=== PATIENT | female | born 1935 | race Caucasian/White ===

== ENCOUNTER 2021-11-15 10:00 | Outpatient (RCR) | payer MEDICARE, BC, SELFPAY | END 2021-12-01 16:45 | disposition home or self-care (01) | LOC: PT.CARL 10:00 | PROVIDERS: PCP Family Medicine; Visit Provider Family Medicine | DX: M50.30 Other cervical disc degeneration, unspecified cervical region (principal) | CPT/HCPCS: 97010; 97014; 97035; 97110; 97140; 97163; G0283 ==

== ENCOUNTER 2022-05-07 11:28 | Emergency (ER) | payer MEDICARE, BC, SELFPAY ==
[2022-05-07 11:38] VITALS: BP 154/81; PULSE 74; RESP 17; TEMP 36.6; O2SAT 95; BMI 28.3
--- NOTE | 2022-05-07 11:41 | XR_ITS ---
PROCEDURE INFORMATION: Exam: XR Cervical Spine Exam date and time: 05/07/2022 11:45 AM Age: 86 years old Clinical indication: Neck pain; Additional info: Neck pain- no injury but can not turn neck or bend without pain TECHNIQUE: Imaging protocol: Radiologic exam of the cervical spine. Views: 2 or 3 views. COMPARISON: No relevant prior studies available. FINDINGS: Bones/joints: Multilevel degenerative disc and joint space changes, most pronounced at C6/7 and C7/T1 with marginal osteophytosis. Straightened cervical spine. Vertebral body heights grossly preserved. Soft tissues: Soft tissue silhouette unremarkable. IMPRESSION: Degenerative changes. Spasm.
--- NOTE | 2022-05-07 11:43 | HMH.EDGENADL ---
Discharge Plan Disposition Patient Disposition: Home, Self-Care Condition: Good Prescriptions Prescriptions: New baclofen 5 mg tablet 5 mg PO Q8H PRN (Reason: neck pain) Qty: 20 0RF Referrals Follow up/Referrals: Mimi Madera [Primary Care Provider] - See instructions Activity Restrictions/Add. Instructions Additional Instructions/Restrictions: You may take [id number] Tylenol for your pain. A prescription for a muscle relaxer named baclofen is waiting for you at the local [facility] pharmacy. Please follow-up with your primary care doctor if you do not feel better in the next 2 to 3 days. Return to the emergency department immediately if you feel worse in any way. Clinical Impressions Clinical Impression: Strain of neck muscle Instructions Patient Instructions: DI for Neck Pain Discharge ED Provider: Ismael Fung Adult HPI General Chief complaint: Neck Pain/Injury Stated complaint: neck pain, no accident Time Seen by Provider: 05/07/22 11:36 Mode of Arrival: Ambulatory Source of Information: Patient and Relative Limitations: Physical Limitations Description of Symptoms (Recalled from ER Triage Doc. by RN): Pt c/o neck pain onset I couldn't straighten it out two days prior, atraumatic, PMH cervical osteoarthritis, NAD History of Present Illness HPI narrative: The patient presents to the emergency department complaining of a 2-day history of bilateral posterior neck pain without history of trauma. She has a history of arthritis and has had similar symptoms in the past but not so severe as today. She denies any neurologic deficits. She also denies fevers. Related Data Previous Rx's Medication Instructions Recorded baclofen 5 mg tablet 5 mg PO Q8H PRN neck pain #20 tabs 05/07/22 Allergies Allergy/AdvReac Type Severity Reaction Status Date / Time No Known Allergies Allergy Unverified 03/20/17 15:02 [facility] Disclaimer: The information contained in this section may have been updated after the patient was seen, as this information can be updated by other users. Social History Smoking Status: Never smoker alcohol intake: never current occupational status: retired Travel in the last 8 weeks: None ROS Obtained: Yes All systems reviewed & no additional complaints except as documented Physical Exam General General appearance: alert Head Head exam: atraumatic Eye Eye exam: Present normal appearance ENT ENT exam: Present normal exam Neck Neck exam: Present normal inspection, full ROM (There is increased pain when turning the head side to side.), trachea midline and tenderness (There is mild paraspinal muscle tenderness. There is no midline tenderness.); Absent meningismus or lymphadenopathy Chest Chest inspection: Present normal inspection and symmetric chest wall rise; Absent tenderness Respiratory Respiratory exam: Present normal lung sounds bilaterally; Absent respiratory distress or accessory muscle use Cardiovascular Cardiovascular exam: Present regular rate, normal rhythm and normal heart sounds Abdominal Exam Abdominal exam: Present soft and normal bowel sounds; Absent distention, tenderness, heel tap sign, Bethea's sign, Rovsing's sign, tenderness at McBurney's Point or mass Extremities Exam Extremities exam: Present normal inspection and full ROM Back Exam Back exam: Present normal inspection; Absent CVA tenderness (R) or CVA tenderness (L) Neurological Exam Neurological exam: Present alert and oriented X3 Psychiatric Psychiatric exam: Present normal affect and normal mood Skin Skin exam: Present warm, dry, intact and normal color Medical Decision Making [place] Inquiry Pt receiving controlled substance: No Vital Signs: 05/07/22 11:38 Temperature 97.8 F Temperature Source Oral Pulse Rate [Left Radial] 74 Respiratory Rate 17 Blood Pressure [Right Arm] 154/81 H Blood Pressure Mean [Right Arm] 105 Blood Pressure Source [Right Arm] Automati
[2022-05-07 12:00] VITALS: BP 144/78; PULSE 72; O2SAT 97
[2022-05-07 12:29] VITALS: BP 131/70; PULSE 62; O2SAT 96
[2022-05-07 12:33] VITALS: BP 131/70; PULSE 64; RESP 16; TEMP 36.7; O2SAT 96
== END 2022-05-07 12:35 | disposition home or self-care (01) ==
PROVIDERS: Emergency Provider Emergency Medicine; PCP Family Medicine
DX: S16.1XXA Strain of muscle, fascia and tendon at neck level, initial encounter (principal); X58.XXXA Exposure to other specified factors, initial encounter
CPT/HCPCS: 72040; 96372; 99283; 99284

== ENCOUNTER 2023-06-25 10:19 | Observation (INO) | payer MEDICARE, BC, SELFPAY ==
[2023-06-25] VITALS (12 sets, daily range): BP systolic 126–201; BP diastolic 69–115; PULSE 61–88; RESP 16–18; TEMP 36.6–37.2; O2SAT 91–99; BMI 21.9; BMI 22.3
--- NOTE | 2023-06-25 11:07 | CT_ITS ---
FINAL REPORT TECHNIQUE: Axial imaging of the head was obtained without contrast. This study was performed with techniques to keep radiation doses as low as reasonably achievable, (ALARA). Individualized dose reduction techniques using automated exposure control or adjustment of mA and/or kV according to the patient''s size were employed. CLINICAL HISTORY: AMS, general weakness FINDINGS: The ventricles are normal in size. There is no evidence of hemorrhage. No masses are identified. No extra-axial fluid is seen. The sinuses are normal. There is no acute osseous abnormality. IMPRESSION: No acute intracranial abnormality. Reviewed, Interpreted and Dictated by Brii Drew MD Transcribed by Tameka Rivas Authenticated and [facility]
--- NOTE | 2023-06-25 11:07 | XR_ITS ---
FINAL REPORT TECHNIQUE: Single view chest CLINICAL HISTORY: AMS, general weakness FINDINGS: A single view of the chest was obtained. The heart and mediastinum are within normal limits. The lungs are clear. There is no pneumothorax. Osseous structures are unremarkable. IMPRESSION: No acute cardiopulmonary process. Reviewed, Interpreted and Dictated by Brii Drew MD Transcribed by Tameka Rivas Authenticated and [facility]
--- NOTE | 2023-06-25 11:08 | CT_ITS ---
FINAL REPORT TECHNIQUE: Axial images were obtained from skull base to the thoracic inlet by computed tomography. Coronal and sagittal reconstruction process performed. This study was performed with techniques to keep radiation doses as low as reasonably achievable (ALARA). Individualized dose reduction techniques using automated exposure control or adjustment of mA and/or kV according to the patient''s size were employed. CLINICAL HISTORY: worsened neck pain, chronic, arthritis FINDINGS: There is no acute fracture or subluxation. Cervical medullary junction is intact. There is multilevel degenerative disc disease most pronounced at C6-7. There is a small right cervical rib. The facets are normally aligned. The soft tissues are unremarkable. Limited images of the lung apices are unremarkable. IMPRESSION: Degenerative changes without acute fracture. Reviewed, Interpreted and Dictated by Brii Drew MD Transcribed by Tameka Rivas Authenticated and [facility]
[2023-06-25 11:17] LABS: Chloride 103 mmol/L (98-107); Sodium 132 mmol/L (136-145)
[2023-06-25 11:20] LABS: Alanine Aminotransferase 24 U/L (12-78); Albumin Level 3.7 g/dl (3.5-5.0); Albumin/Globulin Ratio 1.1 (1.1-1.8); Alkaline Phosphatase 95 U/L (38-126); Aspartate Amino Transferase 28 U/L (14-36); Bilirubin,Total 1.6 mg/dl (0.2-1.3); Blood Urea Nitrogen 17 mg/dl (7-17); Calcium 9.6 mg/dl (8.4-10.2); Carbon Dioxide 20 mmol/L (22.0-30.0); Creatinine Clearance Estimated 38 mL/min (50-200); Estimated Glomerular Filt Rate 68 ml/min (>60); GFR (African American) 82 ML/MIN (>60); Globulin 3.4 g/dL (1.3-3.2); Glucose 145 mg/dl (74-100); Total Protein,Serum 7.1 g/dl (6.3-8.2)
[2023-06-25 11:21] LABS: Magnesium 1.8 mg/dl (1.6-2.3)
[2023-06-25 11:33] LABS: Basophils # 0.1 K/mm3 (0-0.2); Basophils % 0.4 % (0.1-2.0); Eosinophils % 0.1 % (0.1-12.0); Hematocrit 39.3 % (37.0-47.0); Hemoglobin 13.2 g/dL (12.2-16.2); Lymphocytes # 2.3 K/mm3 (0.7-4.5); Lymphocytes % 11.7 % (10-50); Mean Corpuscular HGB Conc 33.5 g/dL (31.8-35.4); Mean Corpuscular Hemoglobin 29.3 pg (27.0-31.2); Mean Corpuscular Volume 87.4 fl (81-99); Mean Platelet Volume 8.5 fl (7.4-10.4); Monocytes # 1.8 K/mm3 (0.1-1.0); Monocytes % 9.3 % (1.7-9.3); Neutrophils # 15.1 K/mm3 (1.8-7.8); Neutrophils % 78.5 % (37.0-80.0); Platelet Count 471 K/mm3 (142-424); Red Cell Distribution Width 14.8 % (11.5-17.5); White Blood Count 19.2 K/mm3 (4.8-10.8)
--- NOTE | 2023-06-25 11:33 | ECG_ITS ---
APPROVED REPORT Exam: Resting ECG HR:69 bpm ECG Measurements Heart Rate 69 AXES MT 144 P 64 QRSd 88 QRS -4 QT 414 T 73 QTc 433 Conclusion SINUS RHYTHM VOLTAGE CRITERIA FOR LVH [MEETS CRITERIA IN ONE OF: R(aVL), S(V1), R(V5), R(V5/V6)+S(V1)] NONSPECIFIC ST & T-WAVE ABNORMALITY Electronically signed by : LLOYD GUZMAN, 06/25/2023 15:54:20
[2023-06-25 11:34] LABS: MANUAL DIFFERENTIAL MANUAL DIFFERENTIAL (MANUAL DIFF)
[2023-06-25 11:38] LABS: T4 (Thyroxine) 9.3 ug/dl (5.53-11.0); Troponin I < 0.01 ng/ml (0.00-0.034)
[2023-06-25 11:40] LABS: Coronavirus 19, PCR Not Detected (NotDetected); Influenza A, PCR Not Detected (NotDetected); Influenza B, PCR Not Detected (NotDetected)
[2023-06-25 11:45] LABS: NT Pro Brain Natriuretic Pep. 251 pg/mL (0-450)
[2023-06-25 11:52] LABS: Lymphocytes % 21 % (10-50); Monocytes % 10 % (2-9); Neutrophils % 69 % (42-76); Platelet Estimate Slight Increase; RBC Morphology Normal; Thyroid Stimulating Hormone 1.89 uIU/mL (0.465-4.68); Total Cells Counted 100
--- NOTE | 2023-06-25 11:54 | ED_ITS ---
Discharge Plan Disposition Patient Disposition: Admitted Clinical Impressions Clinical Impression: Acute UTI, General weakness, Altered mental status Discharge ED Provider: Latia Parsons General Adult HPI General Chief complaint: Back Pain/Injury Stated complaint: lower back pain Time Seen by Provider: 06/25/23 10:58 Mode of Arrival: EMS Source of Information: Patient, Relative and EMS Limitations: No Limitations Description of Symptoms (Recalled from ER Triage Doc. by RN): Upon arrival pt c/o lower back pain that has been ongoing x1 year. pt denies urinary/abd symptoms or radiation. pt states the pain is dull but 10/10. pt denies injury. pt has a hx of dementia per EMS but is A&O x4. pts son, David, on arrival states she has been having lower back pain and bilateral ankle/foot pain x3d. David states there has been no injury. Per the son the pt has refused to take any of her medications for the last week. History of Present Illness HPI narrative: This patient is an 87-year-old female with history of dementia, chronic neck pain, hypertension, and hypothyroidism presenting with concern for generalized weakness. According to the patient's family, she has complained of chronic neck pain for quite some time now, months to years, and has had multiple imaging studies done and has been told that she has arthritis. They note that nothing is changed as far as this goes, but today the patient was more confused than usual and generally weak. They note that this actually started probably yesterday with more confusion and general weakness, but the patient was ambulatory yesterday with assistance. She typically does not require help. They note that she has been complaining of pain in the bottom of her feet. Today, they could not get her up out of bed without significant assistance. They tried to bring her here by POV to be evaluated, but they could not get her into the car. This is unusual for her. Patient states overall she just feels very weak. She denies any numbness, tingling, saddle anesthesia, increasing pain, incontinence, retention, or other concerns. No fevers, cough, congestion, abdominal pain, urinary symptoms, or other issues noted. Of note, patient has not taken her medications in 3 days. Related Data Home Medications Medication Instructions Recorded Confirmed acetaminophen 650 mg tablet 650 mg PO Q4-6H Pain 06/25/23 06/25/23 amlodipine 5 mg tablet 5 mg PO DAILY 06/25/23 06/25/23 aspirin 81 mg tablet 81 mg PO DAILY HEART HEALTH 06/25/23 06/25/23 budesonide-formoterol HFA 80 1 inh inhalation BID PRN Breathing 06/25/23 06/25/23 mcg-4.5 mcg/actuation aerosol Problems inhaler (Symbicort) buspirone 7.5 mg tablet 7.5 mg PO BID 06/25/23 06/25/23 donepezil 10 mg tablet 10 mg PO HS 06/25/23 06/25/23 dorzolamide 22.3 mg-timolol 6.8 1 drp ophthalmic (eye) BID 06/25/23 06/25/23 mg/mL eye drops fluoxetine 40 mg capsule 40 mg PO DAILY Mood 06/25/23 06/25/23 latanoprost 0.005 % eye drops 1 drp ophthalmic (eye) HS 06/25/23 06/25/23 levothyroxine 50 mcg tablet 50 mcg PO DAILY Thyroid 06/25/23 06/25/23 losartan 50 mg tablet 50 mg PO HS High Blood Pressure 06/25/23 06/25/23 montelukast 10 mg tablet 10 mg PO PM Allergy Symptoms 06/25/23 06/25/23 pilocarpine HCl 1 % eye drops 1 drp ophthalmic (eye) TID 06/25/23 06/25/23 Allergies Allergy/AdvReac Type Severity Reaction Status Date / Time No Known Allergies Allergy Verified 06/25/23 10:49 [facility] Disclaimer: The information contained in this section may have been updated after the patient was seen, as this information can be updated by other users. Medical History Glaucoma Arthritis HTN (hypertension) Asthma Dementia Hypothyroid Family History (Updated 06/25/23 @ 15:06 by Shania Benavides RN) Other No significant family history Social History (Updated 06/25/23 @ 15:06 by Shania Benavides RN) Smoking Status: Never smoker alcohol intake: never current occupational status: retired Travel in the last 8 weeks: None ROS Obtained: Yes All systems reviewed & no additional complaints except as documented Physical Exam General General appearance: alert and in no apparent distress Head Head exam: atraumatic and normocephalic Eye Eye exam: Present normal appearance, PERRL and EOMI ENT ENT exam: Present normal exam, normal oropharynx, mucous membranes moist and normal external ear exam Neck Neck exam: Present normal inspection, full ROM and trachea midline; Absent tenderness Chest Chest inspection: Present normal inspection and symmetric chest wall rise; Absent tenderness Respiratory Respiratory exam: Present normal lung sounds bilaterally; Absent respiratory distress, wheezes, stridor or accessory muscle use Cardiovascular Cardiovascular exam: Present regular rate and normal rhythm Abdominal Exam Abdominal exam: Present soft; Absent distention, tenderness or guarding Extremities Exam Extremities exam: Present normal inspection, full ROM and normal capillary refill; Absent tenderness or edema Back Exam Back exam: Present normal inspection and full ROM; Absent tenderness Neurological Exam Neurological exam: Present alert, CN II-XII intact and other (Generally weak without focal neurologic deficits. Intact sensation in the bilateral lower extremities.); Absent oriented X3 or motor sensory deficit Expanded Neurological Exam Patient oriented to: Present person; Absent place or time Cranial nerves: Normal: EOM function (II, III, IV, ), facial sensation (V), facial palsy (VII), spinal accessory function (XI) and tongue deviation (XII) Cerebellar function: Normal: finger to nose and heel to [place] Motor strength - LUE: 5/5 Motor strength - RUE: 5/5 Motor strength - LLE: 5/5 Motor strength - RLE: 5/5 Upper motor neuron exam: Normal: radha neglect Sensory exam upper extremity: Normal: light touch Sensory exam lower extremity: Normal: light touch Spinal cord function: Absent saddle anesthesia Coma scale eye opening: Spontaneous Coma scale motor response: Obeys commands Coma scale verbal response: Oriented Coma scale total: 15 Psychiatric Psychiatric exam: Present normal affect and normal mood Skin Skin exam: Present warm and dry Medical Decision Making Medical Records Medical records reviewed: Yes I reviewed the patient's medical records. [place] Inquiry Pt receiving controlled substance: No Vital Signs: 06/25/23 10:32 06/25/23 10:35 06/25/23 11:01 Temperature 98 F Temperature Source Oral Pulse Rate 73 68 Pulse Rate [Left] 71 Respiratory Rate 18 Blood Pressure 195/74 H 185/87 H Blood Pressure [Right Arm] 201/83 H Blood Pressure Mean Blood Pressure Mean [Right Arm] 122 Blood Pressure Source [Right Arm] Automatic Cuff Blood Pressure Position [Right Arm] Sitting 02 Sat by Pulse Oximetry 98 99 97 Oxygen Delivery Method Room Air Room Air 06/25/23 11:30 06/25/23 12:00 06/25/23 12:50 Temperature Temperature Source Pulse Rate 66 74 61 Pulse Rate [Left] Respiratory Rate Blood Pressure 182/81 H 188/92 H 179/115 H Blood Pressure [Right Arm] Blood Pressure Mean Blood Pressure Mean [Right Arm] Blood Pressure Source [Right Arm] Blood Pressure Position [Right Arm] 02 Sat by Pulse Oximetry 98 98 91 L Oxygen Delivery Method Room Air Room Air Room Air 06/25/23 13:05 06/25/23 13:30 06/25/23 14:31 Temperature Temperature Source Pulse Rate 84 88 74 Pulse Rate [Left] Respiratory Rate Blood Pressure 154/94 H 150/73 H 151/75 H Blood Pressure [Right Arm] Blood Pressure Mean 112 Blood Pressure Mean [Right Arm] Blood Pressure Source [Right Arm] Blood Pressure Position [Right Arm] 02 Sat by Pulse Oximetry 97 98 97 Oxygen Delivery Method Room Air Room Air Room Air 06/25/23 15:00 Temperature Temperature Source Pulse Rate Pulse Rate [Left] Respiratory Rate Blood Pressure Blood Pressure [Right Arm] Blood Pressure Mean Blood Pressure Mean [Right Arm] Blood Pressure Source [Right Arm] Blood Pressure Position [Right Arm] 02 Sat by Pulse Oximetry Oxygen Delivery Method Room Air Lab Data Lab results reviewed: Yes I reviewed the patient's lab results. Lab Results 06/25/23 10:32: WBC 19.2 H, RBC 4.50, Hgb 13.2, Hct 39.3, MCV 87.4, MCH 29.3, MCHC 33.5, RDW 14.8, Plt Count 471 H, MPV 8.5, Neut % (Auto) 78.5, Lymph % (Auto) 11.7, [place] % (Auto) 9.3, Eos % (Auto) 0.1, Baso % (Auto) 0.4, Neut # (Auto) 15.1 H, Lymph # (Auto) 2.3, [place] # (Auto) 1.8 H, Eos # (Auto) 0.0, Baso # (Auto) 0.1, Total Counted 100, Neutrophils % (Manual) 69, Lymphocytes % (Manual) 21, Monocytes % (Manual) 10 H, Platelet Estimate Slight increase, RBC Morphology Normal, Sodium 132 L, Potassium 4.0, Chloride 103, Carbon Dioxide 20 L, Anion Gap 13.0, BUN 17, Creatinine 0.80, Estimated Creat Clear 38, Estimated GFR 68, Est GFR ( Amer) 82, Glucose 145 H, Calcium 9.6, Magnesium 1.8, Total Bilirubin 1.6 H, AST 28, ALT 24, Alkaline Phosphatase 95, Troponin I < 0.01, NT-Pro-B Natriuret Pep 251, Total Protein 7.1, Albumin 3.7, Globulin 3.4 H, Albumin/Globulin Ratio 1.1, TSH 1.89, Thyroxine (T4) 9.3 06/25/23 11:36: SARS-CoV-2 (PCR) Not detected, Influenza A Untype (PCR) Not detected, Influenza Type B (PCR) Not detected 06/25/23 12:44: Urine Color Yellow, Urine Appearance Clear, Urine pH 6.0, Ur Specific [place] 1.020, Urine Protein 1+, Urine Glucose (UA) Negative, Urine Ketones 3+, Urine Blood 2+, Urine Nitrate Negative, Urine Bilirubin 1+ A, Urine Urobilinogen 2.0, Ur Leukocyte Esterase Negative, Urine RBC 10-20, Urine WBC 3- 5, Ur Squamous Epith Cells 3-5, Urine Bacteria Trace, Urine Mucus 2+ 06/25/23 10:32 06/25/23 10:32 Orders (Tests/Meds): ED MEDICATIONS Discontinued Medications Generic Name Dose Route Start Last Admin Trade Name Freq PRN Reason Stop Dose Admin Ceftriaxone Sodium 2 gm/ 100 mls @ 200 mls/hr 06/25/23 13:27 06/25/23 14:05 Sodium Chloride IV 06/25/23 13:56 200 mls/hr ONCE ONE Administration ORDERS Category Date Time Status CT cervical spine wo con Stat Cat Scan 06/25/23 11:[address] head/brain wo con Stat Cat Scan 06/25/23 11:07 Completed XR chest portable Stat Exams 06/25/23 11:07 Completed Brain Natriuretic Peptide Stat Lab 06/25/23 10:32 Completed Complete Blood Count Auto Diff AMLAB Lab 06/26/23 06:00 Ordered Complete Blood Count Auto Diff Stat Lab 06/25/23 10:32 Completed Comprehensive Metabolic Panel AMLAB Lab 06/26/23 06:00 Ordered Comprehensive Metabolic Panel Stat Lab 06/25/23 10:32 Completed Magnesium AMLAB Lab 06/26/23 06:00 Ordered Magnesium Stat Lab 06/25/23 10:32 Completed Rapid PCR Covid and Flu A/B Stat Lab 06/25/23 11:36 Completed T4 (Thyroxine) Stat Lab 06/25/23 10:32 Completed Thyroid Stimulating Hormone Stat Lab 06/25/23 10:32 Completed Troponin I Q3H Lab 06/25/23 15:00 Received Troponin I Q3H Lab 06/25/23 17:15 Ordered Troponin I Stat Lab 06/25/23 10:32 Completed Urinalysis and Microscopic Stat Lab 06/25/23 12:44 Completed Blood Culture Stat Micro 06/25/23 13:59 Received ECG Data Tracing #1: I reviewed this ECG and interpreted as documented below: Normal sinus rhythm with a ventricular rate of [address] changes concerning for ischemia. Normal intervals. ECG initial impression date: 06/25/23 ECG initial impression time: 11:36 Medical Decision Narrative: In summary, this patient is a 87-year-old female presenting to the Emergency Department for evaluation of generalized weakness and inability to get up out of bed today. She does continue to complain of chronic neck pain. Differential diagnoses considered include but are not limited to dehydration, hyponatremia, hypokalemia, urinary tract infection, pneumonia, viral syndrome, spinal cord compression. Ruling out the most morbid conditions drove assessment. On exam, the patient is resting comfortably in bed in no acute distress. She is hypertensive, but has not taken her medication in approximately 3 days for her blood pressure. She has no focal neurologic deficits or any numbness, tingling, or other concerns that would suggest spinal cord compression or other acute neurologic abnormality. She is just generally weak overall with no focal deficits, and she is disoriented. Family notes history of dementia, but she is typically not this confused. Workup included lab evaluation including infectious and metabolic workup as well as CT scan of the head, CT C-spine, chest x-ray, and EKG. I independently interpreted CT scans prior to the radiologist read and noted no obvious acute pulmonary consolidation, intracranial hemorrhage/ischemia, or other concerns. Please see their read for final interpretation. Labs were obtained that demonstrated leukocytosis of 19 with concerns for urinary tract infection on urinalysis. Blood cultures and urine culture were sent and are pending. On reassessment, patient remains confused and generally weak with no focal deficits. At this time, feel she likely has UTI causing her encephalopathy and general weakness in the setting of longstanding dementia. Patient was given IV Rocephin. At this time, I feel patient is appropriate for admission for further evaluation and management given that she is too weak to stand and go home. Patient was admitted after interactive discussion with Dr. Kuo. Critical Care Critical Care Time Critical Care Time: No
[2023-06-25 12:49] LABS: Microscopic, Urine URINE MICROSCOPIC (MICROSCOPIC)
[2023-06-25 12:59] LABS: Appearance,Urine CLEAR (Clear); Blood, Urine 2+ (Negative); Color,Urine YELLOW (Yellow); Glucose,Urine (UA) Negative (Negative); Ketones,Urine 3+ (Negative); Leukocyte Esterase,Urine Negative (Negative); Nitrate,Urine Negative (Negative); Protein,Urine 1+ (Negative)
[2023-06-25 13:15] LABS: Bacteria,Urine Trace /lpf; Bilirubin,Urine 1+ (Negative)
[2023-06-25 13:16] LABS: Mucus,Urine 2+ /lpf
--- NOTE | 2023-06-25 14:01 | EXP.HP ---
History of Present Illness *Admission Date: 06/25/23 *Reason for visit:: weakness *History of present illness: Ms. Champagne is an 87-year-old female with history of dementia, hypertension, COPD, mood disorder. She presented to the ER because of complaint of some low back pains been going on for quite a while. States she has been having some pain in her abdomen that is dull but rates it as severe. Family was concerned that she was more confused and weak and not able to participate in her care. She has been complaining of bilateral ankle pain to family but did not complain about this to our team on arrival. Patient has not been taking any of her medications for the past week per family. Their biggest concern that brought her to the ER was increased weakness, confusion, not being ambulatory to assist with her care. Workup in the ER concerning for leukocytosis of 19. No ZARINA, creatinine normal at 0.8. Urine abnormal and concerning for UTI as a source of her confusion and weakness. Initiated on antibiotics with ceftriaxone and medicine was consulted for admission and further management. On evaluation, patient is alert and oriented to self, knows she is in the hospital, thinks she is in [place]. Knows that it is May but does not know the day of the week of the specific date. Knows it is in the 20s. She appears very interactive. Granddaughter (Sid) at bedside states that she is doing better since admission. Patient is on room air and afebrile. [facility] Disclaimer: The information contained in this section may have been updated after the patient was seen, as this information can be updated by other users. Medical History Glaucoma Arthritis HTN (hypertension) Asthma Dementia Hypothyroid Family History Other No significant family history Social History Smoking Status: Never smoker alcohol intake: never current occupational status: retired Travel in the last 8 weeks: None Review of Systems Review of Systems Review of systems (narrative): 14 point review of systems performed, pertinent positives and negatives as per HPI Meds Home Medications and Allergies Home Medications Medication Instructions Recorded Confirmed Type acetaminophen 650 mg tablet 650 mg PO Q4-6H Pain 06/25/23 06/25/23 History amlodipine 5 mg tablet 5 mg PO DAILY 06/25/23 06/25/23 History aspirin 81 mg tablet 81 mg PO DAILY HEART HEALTH 06/25/23 06/25/23 History budesonide-formoterol HFA 80 1 inh inhalation BID PRN Breathing 06/25/23 06/25/23 History mcg-4.5 mcg/actuation aerosol Problems inhaler (Symbicort) buspirone 7.5 mg tablet 7.5 mg PO BID 06/25/23 06/25/23 History donepezil 10 mg tablet 10 mg PO HS 06/25/23 06/25/23 History dorzolamide 22.3 mg-timolol 6.8 1 drp ophthalmic (eye) BID 06/25/23 06/25/23 History mg/mL eye drops fluoxetine 40 mg capsule 40 mg PO DAILY Mood 06/25/23 06/25/23 History latanoprost 0.005 % eye drops 1 drp ophthalmic (eye) HS 06/25/23 06/25/23 History levothyroxine 50 mcg tablet 50 mcg PO DAILY Thyroid 06/25/23 06/25/23 History losartan 50 mg tablet 50 mg PO HS High Blood Pressure 06/25/23 06/25/23 History montelukast 10 mg tablet 10 mg PO PM Allergy Symptoms 06/25/23 06/25/23 History pilocarpine HCl 1 % eye drops 1 drp ophthalmic (eye) TID 06/25/23 06/25/23 History New Prescriptions to Start Prescriptions: Allergies Allergy/AdvReac Type Severity Reaction Status Date / Time No Known Allergies Allergy Verified 06/25/23 10:49 Exam Data for Last 24 hours Vital signs and Labs for Last 24 Hours: Temp Pulse Resp BP Pulse Ox O2 Del Method 98 F 88 18 150/73 H 98 Room Air 06/25/23 10:35 06/25/23 13:30 06/25/23 10:35 06/25/23 13:30 06/25/23 13:30 06/25/23 13:30 Laboratory Results - last 24 hr 06/25/23 10:32: WBC 19.2 H, RBC 4.50, Hgb 13.2, Hct 39.3, MCV 87.4, MCH 29.3, MCHC 33.5, RDW 14.8, Plt Count 471 H, MPV 8.5, Neut % (Auto) 78.5, Lymph % (Auto) 11.7, [place] % (Auto) 9.3, Eos % (Auto) 0.1, Baso % (Auto) 0.4, Neut # (Auto) 15.1 H, Lymph # (Auto) 2.3, [place] # (Auto) 1.8 H, Eos # (Auto) 0.0, Baso # (Auto) 0.1, Total Counted 100, Neutrophils % (Manual) 69, Lymphocytes % (Manual) 21, Monocytes % (Manual) 10 H, Platelet Estimate Slight increase, RBC Morphology Normal, Sodium 132 L, Potassium 4.0, Chloride 103, Carbon Dioxide 20 L, Anion Gap 13.0, BUN 17, Creatinine 0.80, Estimated Creat Clear 38, Estimated GFR 68, Est GFR ( Amer) 82, Glucose 145 H, Calcium 9.6, Magnesium 1.8, Total Bilirubin 1.6 H, AST 28, ALT 24, Alkaline Phosphatase 95, Troponin I < 0.01, NT-Pro-B Natriuret Pep 251, Total Protein 7.1, Albumin 3.7, Globulin 3.4 H, Albumin/Globulin Ratio 1.1, TSH 1.89, Thyroxine (T4) 9.3 06/25/23 11:36: SARS-CoV-2 (PCR) Not detected, Influenza A Untype (PCR) Not detected, Influenza Type B (PCR) Not detected 06/25/23 12:44: Urine Color Yellow, Urine Appearance Clear, Urine pH 6.0, Ur Specific [place] 1.020, Urine Protein 1+, Urine Glucose (UA) Negative, Urine Ketones 3+, Urine Blood 2+, Urine Nitrate Negative, Urine Bilirubin 1+ A, Urine Urobilinogen 2.0, Ur Leukocyte Esterase Negative, Urine RBC 10-20, Urine WBC 3-5, Ur Squamous Epith Cells 3-5, Urine Bacteria Trace, Urine Mucus 2+ I & O for Last 24 hours: Intake & Output 06/22/23 06/23/23 06/24/23 06/25/23 23:59 23:59 23:59 23:59 Weight 58.06 kg Constitutional Constitutional: no acute distress, average body habitus and cooperative *Routine HEENT Exam Head: Present normocephalic Eye: Present EOMI and PERRL ENT: Present mucous membranes moist *Routine Neck Exam Neck: Present supple; Absent lymphadenopathy *Routine Respiratory Exam Respiratory: Present CTA bilaterally; Absent rhonchi, wheezes or crackles *Routine Cardiovascular Exam Cardiovascular: Present RRR *Routine Abdominal Exam Abdominal: Present soft and normoactive bowel sounds; Absent tenderness *Routine Rectal Exam Rectal:: deferred *Routine Genitalia Exam Genitalia:: deferred *Routine Extremities Exam Extremities: Absent cyanosis, clubbing or edema *Routine Skin Exam Skin: Present warm; Absent rash *Routine Neurological Exam Neurological: Present alert and moving all extremities Comments: Oriented to self. Knows she is at the hospital. Thinks she is in [place]. Knows that it is May but does not know the day of the week or the day of the month. Routine Psychiatric Exam Psychiatric: Present normal affect Assessment and Plan *Assessment and plan (1) Altered mental status: Status: Acute Category: Medical Code(s): R41.82 - Altered mental status, unspecified (2) General weakness: Status: Acute Category: Medical Code(s): R53.1 - Weakness (3) Acute UTI: Status: Acute Category: Medical Code(s): N39.0 - Urinary tract infection, site not specified (4) Glaucoma: Status: Acute Category: Medical Code(s): H40.9 - Unspecified glaucoma (5) Hypothyroid: Status: Acute Category: Medical Code(s): E03.9 - Hypothyroidism, unspecified (6) Dementia: Status: Acute Category: Medical Code(s): F03.90 - Unspecified dementia, unspecified severity, without behavioral disturbance, psychotic disturbance, mood disturbance, and anxiety (7) HTN (hypertension): Status: Acute Category: Medical Code(s): I10 - Essential (primary) hypertension Plan 87-year history of dementia, hypertension, hypothyroid, COPD. Presented to the ER with concern for weakness from her baseline. Family concern for some confusion. Workup in the ER concerning for UTI with leukocytosis. Medicine consulted for admission. Discussed case with ER physician, request admission for IV antibiotics, monitoring clinically for improvement in mentation, therapy eval. Medicine agreed to admit. Problems addressed as follows: Altered mental status UTI Generalized weakness Leukocytosis -White cell count of 19, urine is a cath specimen that is abnormal with bacteria. Urine culture pending. Initiate empiric antibiotics with ceftriaxone 1 g IV daily. -Repeat CBC, CMP, magnesium ordered for the morning. -Given history of dementia, continue home donepezil 10mg daily -Monitor for improvement with IV fluids. Repeat cognitive evaluation in the morning. -PT and OT to evaluate patient for possible placement versus home with home health -Continue day night routine to decrease risk for worsening confusion COPD: continue Singulair 10 mg nightly and Symbicort 1 inhalation twice daily Hypertension: Continue home amlodipine 5 mg daily, losartan 50 mg nightly Mood/depression: On continue fluoxetine 40 mg daily, buspirone 7.5 milligrams twice daily Glaucoma/dry eye: Continue dorzolamide/timolol eyedrops twice daily, pilocarpine eyedrops 3 times a day Hypothyroid: TSH 1.9. Continue home levothyroxine 50 mcg daily Full code Lovenox 40 mg subcu daily Regular diet
[2023-06-25] MEDS: CEFTRIAXONE SODIUM 2 GM in 0.9 % SODIUM CHLORIDE 100 ML IV (14:05)
--- NOTE | 2023-06-25 14:14 | PC.NURSE ---
Report called to Shania TOSCNAO
--- NOTE | 2023-06-25 14:24 | HMH.PHAINT1 ---
Pharmacy Intervention Comments: MEDICATION RECONCILIATION COMPLETED ON PATIENT USING EXTERNAL FILL HISTORY FROM PHARMACY. -ASHER JOSE, CARYLD
--- NOTE | 2023-06-25 14:37 | PC.NURSE ---
arrived by w/c from ED
--- NOTE | 2023-06-25 14:40 | PC.NURSE ---
PT GOING UP FOR ADMISSION
[2023-06-25 15:48] LABS: Troponin I < 0.01 ng/ml (0.00-0.034)
[2023-06-25] MEDS: ACETAMINOPHEN 325MG TAB 650 MG PO ×2 (15:50→22:02)
--- NOTE | 2023-06-25 17:16 | PC.NURSE ---
Pt arrived to the floor via wheelchair by ED Stewart and pt's son & granddaughter. She is alert and oriented x3. She remains on RA and tolerating well. She reports feeling less confused and less weak since arriving to the floor. She complained of neck pain rated 7/10, PRN tylenol administered with pt reporting relief on reassessment. Family declined setting up a password stating that someone would be staying with her at all times. Bed is locked and in the lowest position, call light is within reach.
[2023-06-25 17:31] LABS: Troponin I < 0.01 ng/ml (0.00-0.034)
[2023-06-25] MEDS: DONEPEZIL 10MG TAB 10 MG PO (20:54)
[2023-06-25] MEDS: IRBESARTAN 75MG TABLET 75 MG PO (20:54)
[2023-06-25] MEDS: AMLODIPINE 5MG TABLET 5 MG PO (21:57)
[2023-06-25] MEDS: MONTELUKAST SODIUM 10MG TAB 10 MG PO (21:57)
[2023-06-25] MEDS: FLUOXETINE 20MG CAPSULE 40 MG PO (21:58)
[2023-06-25] MEDS: ASPIRIN EC 81MG TABLET 81 MG PO (21:58)
[2023-06-25] MEDS: LEVOTHYROXINE 25MCG (0.025MG) TAB 50 MCG PO (21:59)
[2023-06-26 04:00] VITALS: BP 114/60; PULSE 59; RESP 16; TEMP 36.6; O2SAT 98; BMI 22.1
[2023-06-26 07:47] LABS: Basophils # 0.1 K/mm3 (0-0.2); Basophils % 0.5 % (0.1-2.0); Eosinophils # 0.1 K/mm3 (0.0-0.4); Hematocrit 33.3 % (37.0-47.0); Hemoglobin 12.3 g/dL (12.2-16.2); Lymphocytes # 2.9 K/mm3 (0.7-4.5); Lymphocytes % 24.6 % (10-50); Mean Corpuscular Hemoglobin 32.2 pg (27.0-31.2); Mean Corpuscular Volume 86.9 fl (81-99); Mean Platelet Volume 8.1 fl (7.4-10.4); Monocytes # 1.5 K/mm3 (0.1-1.0); Monocytes % 12.4 % (1.7-9.3); Neutrophils # 7.2 K/mm3 (1.8-7.8); Neutrophils % 61.5 % (37.0-80.0); Platelet Count 400 K/mm3 (142-424); Red Blood Count 3.84 M/mm3 (4.20-5.40); Red Cell Distribution Width 14.9 % (11.5-17.5); White Blood Count 11.8 K/mm3 (4.8-10.8)
[2023-06-26 07:54] LABS: Alanine Aminotransferase 16 U/L (12-78); Anion Gap 10.2 mEq/L (5-15); Aspartate Amino Transferase 22 U/L (14-36); Bilirubin,Total 0.5 mg/dl (0.2-1.3); Blood Urea Nitrogen 19 mg/dl (7-17); Calcium 9.2 mg/dl (8.4-10.2); Carbon Dioxide 23 mmol/L (22.0-30.0); Chloride 104 mmol/L (98-107); Creatinine Clearance Estimated 38 mL/min (50-200); Estimated Glomerular Filt Rate 80 ml/min (>60); GFR (African American) 96 ML/MIN (>60); Glucose 108 mg/dl (74-100); Potassium 3.2 mmoL/L (3.5-5.1); Sodium 134 mmol/L (136-145); Total Protein,Serum 6.3 g/dl (6.3-8.2)
[2023-06-26 07:55] LABS: Albumin Level 3.4 g/dl (3.5-5.0); Albumin/Globulin Ratio 1.2 (1.1-1.8); Alkaline Phosphatase 79 U/L (38-126); Globulin 2.9 g/dL (1.3-3.2)
[2023-06-26 08:00] VITALS: BP 119/65; PULSE 69; RESP 18; TEMP 36.6; O2SAT 98
--- NOTE | 2023-06-26 08:43 | PC.NURSE ---
Rounded on patient. She denied any needs or questions/concerns at this time. Family member at bedside.
[2023-06-26] MEDS: PILOCARPINE HCL 1% OP (09:04)
[2023-06-26] MEDS: TIMOLOL OP (09:05)
[2023-06-26] MEDS: DORZOLAMIDE OP (09:05)
[2023-06-26] MEDS: ENOXAPARIN 40MG/0.4ML SYRINGE 40 MG SQ (09:05)
[2023-06-26] MEDS: ACETAMINOPHEN 325MG TAB 650 MG PO (09:06)
--- NOTE | 2023-06-26 09:44 | HMH.OTEV ---
OT Inpatient Evaluation Rehab OT IP Evaluation Start: 06/25/23 14:00 Freq: ONCE Status: Active Protocol: Document 06/26/23 09:38 [facility] (Rec: 06/26/23 09:44 [facility] [id number]) Rehab OT IP Assessment Subjective History Pt oriented x 3 on arrival. Pt agreeable to engage in therapy evaluation Pt's family present and supportive. Pt admitted on 06/25/23 due to weakness, UTI, and AMS. History and physical: Ms. Champagne is an 87-year-old female with history of dementia, hypertension, COPD, mood disorder. She presented to the ER because of complaint of some low back pains been going on for quite a while. States she has been having some pain in her abdomen that is dull but rates it as severe . Family was concerned that she was more confused and weak and not able to participate in her care. She has been complaining of bilateral ankle pain to family but did not complain about this to our team on arrival. Patient has not been taking any of her medications for the past week per family. Their biggest concern that brought her to the ER was increased weakness, confusion, not being ambulatory to assist with her care. Workup in the ER concerning for leukocytosis of 19. No ZARINA, creatinine normal at 0.8. Urine abnormal and concerning for UTI as a source of her confusion and weakness. Initiated on antibiotics with ceftriaxone and medicine was consulted for admission and further management. Subjective I just feel weak. Prior to being in the hospital , pt lived at home with her . Pt claims normally she is independent with ADLs such as dressing, bathing, and feeding. Pt is able to do minimal IADLs (light cleaning and cooking). Pt's family assist with most IADLs. She did not require any type of AE during functional tranfers. Objective Patient Orientation Person,Place,Birthday Right Upper Extremity Gross ROM WFL Left Upper Extremity Gross ROM WFL Bed Mobility bed mobility-scooting,bed mobility - supine/sit Assist Level Minimal x 1 (25% assist) Transfer Training Sit/Stand Transfer Assist Level Minimal x 2 (25% assist) Rehab OT IP prob,goals,plan Problems Date of Evaluation: 06/26/23 OT IP Problems Bed Mobility,Transfers,Balance ,Self care,Safety Rehab Potential Rehab Potential Good Equipment Needs Assistive Devices Rolling / Wheeled Walker Plan OT intervention Plan Bed Mobility,Transfers,Balance ,Self care,Safety,Therapeutic Exercise OT Plan Frequency Daily Duration LOS Discharge Goals Bed Mobility Ability Standby Assistance Sit to Stand Chair Transfer Ability Minimal x 1 (25% assist) Chair Transfer Ability Minimal x 1 (25% assist) Chair Transfer Technique Sit to/from Ambulatory Chair Transfer Assistive Devices Rolling Walker Lower Body Dressing Ability Minimal Assistance Upper Body Dressing Ability Standby Assistance Bathing Ability Contact Guard,Moderate Assistance Performing Toilet Hygiene Ability Minimal Assistance Overall Commode/Toilet Transfer Ability Minimal Assistance Commode/Toilet Transfer Technique Sit to/from Ambulatory Commode/Toilet Transfer Assistive Grab Bars Devices Oral Care Assist Minimal Assistance Decrease in Endurance Yes Discharge Plan OT Discharge Plan Pt will continue to be seen for OT services while at [facility]. Pt can return home with family assistance 23/10. Therapist recommends OT evaluation as needed. Continued skilled therapy is important in order for patient to improve strength, safety, endurance, ADL independence, and functional transfers to reach PLOF. Therapist also recommends rolling walker when returning home. Eval Complexity Eval Charge Codes 63432 - Moderate Complexity PHYSICIAN CERTIFICATION: I certify the specified therapy services for Ingrid Rice are required, authorized, and reviewed every 30 days.
--- NOTE | 2023-06-26 10:19 | SW/DCPLANNER ---
Addendum entered by Niurka Lim 06/26/23 13:31: Gris bowden/ [facility] stated that services will begin this week for this patient. Original Note: I spoke w/ patient and her family regarding plans once medically stable for discharge. PT/OT evaluated patient and recommended home w/ family present 23/10 and home health services. Patient/family are agreeable to discharge plan and prefer to use [facility]. Patient stated that she will also need a rolling walker and prefer this be ordered through [facility]. The plan for this patient is to discharge home this afternoon. I will continue to follow up w/ MD, patient/family, [facility] and [facility]. [facility] Resource List has been provided to this patient.
--- NOTE | 2023-06-26 11:02 | P.DS_ITS ---
General Admission date:: 06/25/23 Discharge date: 06/26/23 HPI HPI HPI: Ms. Champagne is an 87-year-old female with history of dementia, hypertension, COPD, mood disorder. She presented to the ER because of complaint of some low back pains been going on for quite a while. States she has been having some pain in her abdomen that is dull but rates it as severe. Family was concerned that she was more confused and weak and not able to participate in her care. She has been complaining of bilateral ankle pain to family but did not complain about this to our team on arrival. Patient has not been taking any of her medications for the past week per family. Their biggest concern that brought her to the ER was increased weakness, confusion, not being ambulatory to assist with her care. Workup in the ER concerning for leukocytosis of 19. No ZARINA, creatinine normal at 0.8. Urine abnormal and concerning for UTI as a source of her confusion and weakness. Initiated on antibiotics with ceftriaxone and medicine was consulted for admission and further management. On evaluation, patient is alert and oriented to self, knows she is in the hospital, thinks she is in [place]. Knows that it is May but does not know the day of the week of the specific date. Knows it is in the 20s. She appears very interactive. Granddaughter (Sid) at bedside states that she is doing better since admission. Patient is on room air and afebrile. Hospital Course Hospital Course Hospital Course: 87-year history of dementia, hypertension, hypothyroid, COPD. Presented to the ER with concern for weakness from her baseline. Family concern for some confusion. Workup in the ER concerning for UTI with leukocytosis. Medicine consulted for admission. Discussed case with ER physician, request admission for IV antibiotics, monitoring clinically for improvement in mentation, therapy eval. Medicine agreed to admit. Did well overnight. At baseline mentation per family. Stable to discharge home with home health. Will continue oral antibiotics. Problems addressed as follows: Altered mental status UTI Generalized weakness Leukocytosis -White cell count of 19 on admission, cath specimen with abnormal findings and concerning for bacteria. Improved white count 11.8 on morning of discharge. Initiated on empiric antibiotics of ceftriaxone. Transitioned to oral antibiotics with cefdinir at discharge to complete empiric course. Given improvement in mentation, tolerance of p.o. intake, improving labs, meeting criteria for discharge home. Evaluated by therapy, would benefit from home health. Discussed obtaining rollator with family. Order device with case management. Family also concerned about patient's bladder prolapse. Has been referred to gynecology before but is yet to see somebody. Will refer to gynecology after discharge for further evaluation. COPD: continue Singulair 10 mg nightly and Symbicort 1 inhalation twice daily Hypertension: Continue home amlodipine 5 mg daily, losartan 50 mg nightly Mood/depression: On continue fluoxetine 40 mg daily, buspirone 7.5 milligrams twice daily Glaucoma/dry eye: Continue dorzolamide/timolol eyedrops twice daily, pilocarpine eyedrops 3 times a day Hypothyroid: TSH 1.9. Continue home levothyroxine 50 mcg daily Total time spent on discharge 35 minutes in counseling with patient and family, documentation, chart review, and direct care with patient. Exam Data for Last 24 hours Vital signs and Labs for Last 24 Hours: Temp Pulse Resp BP Pulse Ox O2 Del Method 97.8 F 69 18 119/65 98 Room Air 06/26/23 08:00 06/26/23 08:00 06/26/23 08:00 06/26/23 08:00 06/26/23 08:00 06/26/23 09:00 Laboratory Results - last 24 hr 06/25/23 10:32: WBC 19.2 H, RBC 4.50, Hgb 13.2, Hct 39.3, MCV 87.4, MCH 29.3, MCHC 33.5, RDW 14.8, Plt Count 471 H, MPV 8.5, Neut % (Auto) 78.5, Lymph % (Auto) 11.7, [place] % (Auto) 9.3, Eos % (Auto) 0.1, Baso % (Auto) 0.4, Neut # (Auto) 15.1 H, Lymph # (Auto) 2.3, [place] # (Auto) 1.8 H, Eos # (Auto) 0.0, Baso # (Auto) 0.1, Total Counted 100, Neutrophils % (Manual) 69, Lymphocytes % (Manual) 21, Monocytes % (Manual) 10 H, Platelet Estimate Slight increase, RBC Morphology Normal, Sodium 132 L, Potassium 4.0, Chloride 103, Carbon Dioxide 20 L, Anion Gap 13.0, BUN 17, Creatinine 0.80, Estimated Creat Clear 38, Estimated GFR 68, Est GFR ( Amer) 82, Glucose 145 H, Calcium 9.6, Magnesium 1.8, Total Bilirubin 1.6 H, AST 28, ALT 24, Alkaline Phosphatase 95, Troponin I < 0.01, NT-Pro-B Natriuret Pep 251, Total Protein 7.1, Albumin 3.7, Globulin 3.4 H, Albumin/Globulin Ratio 1.1, TSH 1.89, Thyroxine (T4) 9.3 06/25/23 11:36: SARS-CoV-2 (PCR) Not detected, Influenza A Untype (PCR) Not detected, Influenza Type B (PCR) Not detected 06/25/23 12:44: Urine Color Yellow, Urine Appearance Clear, Urine pH 6.0, Ur Specific [place] 1.020, Urine Protein 1+, Urine Glucose (UA) Negative, Urine Ketones 3+, Urine Blood 2+, Urine Nitrate Negative, Urine Bilirubin 1+ A, Urine Urobilinogen 2.0, Ur Leukocyte Esterase Negative, Urine RBC 10-20, Urine WBC 3- 5, Ur Squamous Epith Cells 3-5, Urine Bacteria Trace, Urine Mucus 2+ 06/25/23 15:00: Troponin I < 0.01 06/25/23 17:00: Troponin I < 0.01 06/26/23 07:05: WBC 11.8 H D, RBC 3.84 L, Hgb 12.3, Hct 33.3 L, MCV 86.9, MCH 32.2 H, MCHC 37.0 H, RDW 14.9, Plt Count 400, MPV 8.1, Neut % (Auto) 61.5, Lymph % (Auto) 24.6, [place] % (Auto) 12.4 H, Eos % (Auto) 1.0, Baso % (Auto) 0.5, Neut # (Auto) 7.2, Lymph # (Auto) 2.9, [place] # (Auto) 1.5 H, Eos # (Auto) 0.1, Baso # (Auto) 0.1, Sodium 134 L, Potassium 3.2 L, Chloride 104, Carbon Dioxide 23, Anion Gap 10.2, BUN 19 H, Creatinine 0.70, Estimated Creat Clear 38, Estimated GFR 80, Est GFR ( Amer) 96, Glucose 108 H D, Calcium 9.2, Magnesium 2.0 D, Total Bilirubin 0.5, AST 22, ALT 16 D, Alkaline Phosphatase 79, Total Protein 6.3, Albumin 3.4 L, Globulin 2.9, Albumin/Globulin Ratio 1.2 I & O for Last 24 hours: Intake & Output 06/23/23 06/24/23 06/25/23 06/26/23 23:59 23:59 23:59 23:59 Intake Total 340 / 340 120 / 120 Output Total 0 / 300 300 / 300 Balance 340 / 40 -180 / -180 Weight 58.967 kg 58.967 kg Constitutional Constitutional: no acute distress, average body habitus and cooperative *Routine HEENT Exam Head: Present normocephalic Eye: Present EOMI and PERRL ENT: Present mucous membranes moist *Routine Neck Exam Neck: Present supple; Absent lymphadenopathy *Routine Respiratory Exam Respiratory: Present CTA bilaterally; Absent rhonchi, wheezes or crackles *Routine Cardiovascular Exam Cardiovascular: Present RRR *Routine Abdominal Exam Abdominal: Present soft and normoactive bowel sounds; Absent tenderness *Routine Rectal Exam Patient deferred: visual exam *Routine Exam Patient deferred: external exam *Routine Extremities Exam Extremities: Absent cyanosis, clubbing or edema *Routine Skin Exam Skin: Present intact and warm; Absent rash *Routine Neurological Exam Neurological: Present alert and moving all extremities; Absent altered mental status Comments: alert to place and person; at baseline per family at bedside Results Data Completed and Pending Labs on day of discharge: Labs from last 24 hours 06/26/23 06/25/23 06/25/23 07:05 17:00 15:00 WBC 11.8 H D RBC 3.84 L Hgb 12.3 Hct 33.3 L MCV 86.9 MCH 32.2 H MCHC 37.0 H RDW 14.9 Plt Count 400 MPV 8.1 Neut % (Auto) 61.5 Lymph % (Auto) 24.6 [place] % (Auto) 12.4 H Eos % (Auto) 1.0 Baso % (Auto) 0.5 Neut # (Auto) 7.2 Lymph # (Auto) 2.9 [place] # (Auto) 1.5 H Eos # (Auto) 0.1 Baso # (Auto) 0.1 Total Counted Neutrophils % (Manual) Lymphocytes % (Manual) Monocytes % (Manual) Platelet Estimate RBC Morphology Sodium 134 L Potassium 3.2 L Chloride 104 Carbon Dioxide 23 Anion Gap 10.2 BUN 19 H Creatinine 0.70 Estimated Creat Clear 38 Estimated GFR 80 Est GFR ( Amer) 96 Glucose 108 H D Calcium 9.2 Magnesium 2.0 D Total Bilirubin 0.5 AST 22 ALT 16 D Alkaline Phosphatase 79 Troponin I < 0.01 < 0.01 NT-Pro-B Natriuret Pep Total Protein 6.3 Albumin 3.4 L Globulin 2.9 Albumin/Globulin Ratio 1.2 TSH Thyroxine (T4) Urine Color Urine Appearance Urine pH Ur Specific [place] Urine Protein Urine Glucose (UA) Urine Ketones Urine Blood Urine Nitrate Urine Bilirubin Urine Urobilinogen Ur Leukocyte Esterase Urine RBC Urine WBC Ur Squamous Epith Cells Urine Bacteria Urine Mucus SARS-CoV-2 (PCR) Influenza A Untype (PCR) Influenza Type B (PCR) 06/25/23 06/25/23 06/25/23 12:44 11:36 10:32 WBC 19.2 H RBC 4.50 Hgb 13.2 Hct 39.3 MCV 87.4 MCH 29.3 MCHC 33.5 RDW 14.8 Plt Count 471 H MPV 8.5 Neut % (Auto) 78.5 Lymph % (Auto) 11.7 [place] % (Auto) 9.3 Eos % (Auto) 0.1 Baso % (Auto) 0.4 Neut # (Auto) 15.1 H Lymph # (Auto) 2.3 [place] # (Auto) 1.8 H Eos # (Auto) 0.0 Baso # (Auto) 0.1 Total Counted 100 Neutrophils % (Manual) 69 Lymphocytes % (Manual) 21 Monocytes % (Manual) 10 H Platelet Estimate Slight increase RBC Morphology Normal Sodium 132 L Potassium 4.0 Chloride 103 Carbon Dioxide 20 L Anion Gap 13.0 BUN 17 Creatinine 0.80 Estimated Creat Clear 38 Estimated GFR 68 Est GFR ( Amer) 82 Glucose 145 H Calcium 9.6 Magnesium 1.8 Total Bilirubin 1.6 H AST 28 ALT 24 Alkaline Phosphatase 95 Troponin I < 0.01 NT-Pro-B Natriuret Pep 251 Total Protein 7.1 Albumin 3.7 Globulin 3.4 H Albumin/Globulin Ratio 1.1 TSH 1.89 Thyroxine (T4) 9.3 Urine Color Yellow Urine Appearance Clear Urine pH 6.0 Ur Specific [place] 1.020 Urine Protein 1+ Urine Glucose (UA) Negative Urine Ketones 3+ Urine Blood 2+ Urine Nitrate Negative Urine Bilirubin 1+ A Urine Urobilinogen 2.0 Ur Leukocyte Esterase Negative Urine RBC 10-20 Urine WBC 3-5 Ur Squamous Epith Cells 3-5 Urine Bacteria Trace Urine Mucus 2+ SARS-CoV-2 (PCR) Not detected Influenza A Untype (PCR) Not detected Influenza Type B (PCR) Not detected DS: Diagnosis Discharge Diagnosis (1) Altered mental status: Status: Acute Code(s): R41.82 - Altered mental status, unspecified (2) General weakness: Status: Acute Code(s): R53.1 - Weakness (3) Acute UTI: Status: Acute Code(s): N39.0 - Urinary tract infection, site not specified (4) Glaucoma: Status: Acute Code(s): H40.9 - Unspecified glaucoma (5) Hypothyroid: Status: Acute Code(s): E03.9 - Hypothyroidism, unspecified (6) Dementia: Status: Acute Code(s): F03.90 - Unspecified dementia, unspecified severity, without behavioral disturbance, psychotic disturbance, mood disturbance, and anxiety (7) HTN (hypertension): Status: Acute Code(s): I10 - Essential (primary) hypertension Meds Home Medications and Allergies Home Medications Medication Instructions Recorded Confirmed Type acetaminophen 650 mg tablet 650 mg PO Q4-6H Pain 06/25/23 06/27/23 History amlodipine 5 mg tablet 5 mg PO DAILY 06/25/23 06/27/23 History aspirin 81 mg tablet 81 mg PO DAILY HEART HEALTH 06/25/23 06/27/23 History budesonide-formoterol HFA 80 1 inh inhalation BID Breathing 06/25/23 06/27/23 History mcg-4.5 mcg/actuation aerosol Problems inhaler (Symbicort) buspirone 7.5 mg tablet 7.5 mg PO BID 06/25/23 06/27/23 History donepezil 10 mg tablet 10 mg PO HS 06/25/23 06/27/23 History dorzolamide 22.3 mg-timolol 6.8 1 drp ophthalmic (eye) BID 06/25/23 06/27/23 History mg/mL eye drops fluoxetine 40 mg capsule 40 mg PO DAILY Mood 06/25/23 06/27/23 History latanoprost 0.005 % eye drops 1 drp ophthalmic (eye) HS 06/25/23 06/27/23 History levothyroxine 50 mcg tablet 50 mcg PO DAILY Thyroid 06/25/23 06/27/23 History losartan 50 mg tablet 50 mg PO HS High Blood Pressure 06/25/23 06/27/23 History montelukast 10 mg tablet 10 mg PO PM Allergy Symptoms 06/25/23 06/27/23 History pilocarpine HCl 1 % eye drops 1 drp ophthalmic (eye) TID 06/25/23 06/27/23 History cefdinir 300 mg capsule 300 mg PO BID 4 days #8 caps 06/26/23 06/27/23 Rx estradiol 0.01% (0.1 mg/gram) 1 g vaginal QHS #42.5 grams 06/27/23 06/27/23 Rx vaginal cream (Estrace) New Prescriptions to Start Prescriptions: Genaro Chawla Allergies Allergy/AdvReac Type Severity Reaction Status Date / Time No Known Allergies Allergy Verified 06/27/23 13:24 Discharge Plan Disposition Patient Disposition: Home Health Service Condition: Fair Discharge Order Discharge Orders: Discharge Order (Routine); Ordered 06/26/23 Ordered By: Genaro Kuo Follow up Plan Follow up with: Aurelia Bingham DO [Staff Physician] - 06/27/23 1:30 pm Edilberto Lim [Primary Care Provider] - 06/29/23 1:45 pm Prescriptions/Medication Reconciliation: New cefdinir 300 mg Capsule 300 mg PO BID 4 Days Qty: 8 0RF Continued losartan 50 mg tablet 50 mg PO HS Patient Comments: TAKE 1 TABLET BY MOUTH EVERY DAY IN THE EVENING fluoxetine 40 mg capsule 40 mg PO DAILY Patient Comments: TAKE 1 CAPSULE BY MOUTH EVERY DAY latanoprost 0.005 % drops 1 drp ophthalmic (eye) HS Patient Comments: INSTILL 1 DROP INTO BOTH EYES IN THE EVENING pilocarpine HCl 1 % drops 1 drp ophthalmic (eye) TID Patient Comments: ADMINISTER 1 DROP TO BOTH EYES 3 TIMES A DAY. donepezil 10 mg tablet 10 mg PO HS Patient Comments: TAKE 1 TABLET BY MOUTH EVERY DAY AT NIGHT levothyroxine 50 mcg tablet 50 mcg PO DAILY Patient Comments: TAKE 1 TABLET BY MOUTH EVERY DAY dorzolamide-timolol 22.3-6.8 mg/mL drops 1 drp ophthalmic (eye) BID Patient Comments: INSTILL 1 DROP INTO BOTH EYES TWICE A DAY montelukast 10 mg tablet 10 mg PO PM Patient Comments: TAKE 1 TABLET BY MOUTH EVERY DAY AT NIGHT acetaminophen 650 mg Tablet 650 mg PO Q4-6H amlodipine 5 mg Tablet 5 mg PO DAILY buspirone 7.5 mg Tablet 7.5 mg PO BID aspirin 81 mg Tablet 81 mg PO DAILY budesonide-formoterol [Symbicort] 80-4.5 mcg/actuation Hfa Aerosol Inhaler 1 inh INHALATION BID No Action estradiol [Estrace] 0.01 % (0.1 mg/gram) cream 1 g vaginal QHS Qty: 42.5 8RF Rx Instructions: Patient is to use blueberry size QHS for 2 weeks and then twice weekly from then on Other Ambulatory Orders: Home Medical Equipment (Routine) Location: None Selected Ordered By: Genaro Kuo Problem Reconciliation Problems Reviewed?: Yes Patient Discharge Instructions ACTIVITY: Continue current activity DIET: continue same diet Patient Instructions: DI for Urinary Tract Infection (UTI), DI for Muscle Weakness Providers Primary Care Provider: Edilberto Lim Admit Provider: Genaro Kuo Attending Provider: Genaro Kuo
--- NOTE | 2023-06-26 11:37 | HMH.PTEV ---
Physical Therapy Evaluation Rehab PT IP Evaluation Start: 06/25/23 14:00 Freq: ONCE Status: Active Protocol: Document 06/26/23 11:31 LUCHO (Rec: 06/26/23 11:37 LUCHO [email or web address]) Subjective/History History History Per H&P: Ms. Champagne is an 87-year-old female with history of dementia, hypertension, COPD, mood disorder. She presented to the ER because of complaint of some low back pains been going on for quite a while. States she has been having some pain in her abdomen that is dull but rates it as severe . Family was concerned that she was more confused and weak and not able to participate in her care. She has been complaining of bilateral ankle pain to family but did not complain about this to our team on arrival. Patient has not been taking any of her medications for the past week per family. Their biggest concern that brought her to the ER was increased weakness, confusion, not being ambulatory to assist with her care. Workup in the ER concerning for leukocytosis of 19. No ZARINA, creatinine normal at 0.8. Urine abnormal and concerning for UTI as a source of her confusion and weakness. Initiated on antibiotics with ceftriaxone and medicine was consulted for admission and further management. Subjective Subjective PLOF per pt and family report: IND with ADLs and Functional mobility. Did not use an assistive device for amb. Was not driving prior to admission . Lives in single story home with . 3STE home with handrailing. New diagnosis of cancer in past 12 No months? Rehab PT IP Eval Objective Appearance Patient Behavior Appropriate,Cooperative Patient Orientation Person,Place,Situation Difficulty following instructions none Speech Pattern Clear Ambulation Patient Able to Ambulate Yes Ambulation Observation IP General Gait Pattern Observation Narrow Based Gait Ambulation Distance (feet) 15 Ambulation Assistive Device None Ambulation Ability Minimal x 2 (25% assist) Balance Ability to Arise Able, uses arms to help Sitting Balance Steady, safe Standing Balance Unsteady Transfers Bed Transfer Ability Minimal x 1 (25% assist) Sit to Stand Bed Transfer Ability Minimal x 1 (25% assist) Rehab PT IP prob,goals,plan Problems Date of Evaluation: 06/26/23 PT IP Problems Bed Mobility,Transfers,Gait, Balance,Self care,Safety Rehab Potential Rehab Potential Good Equipment Needs Assistive Devices Rolling / Wheeled Walker Plan PT Intervention Plan Bed Mobility,Transfers,Gait, Balance,Safety,Therapeutic Exercise Other Intervention Plan 1-2 times PT Plan Frequency Daily Duration LOS Discharge Goals Bed Transfer Ability Supervision/Stand by Sit to Stand Chair Transfer Ability Contact Guard/Hand Hold Ambulation Assistive Device Rolling Walker Ambulation Distance (feet) 30 Discharge Plan PT Discharge Plan Pt safe to d/c home when deemed medically necessary d/t current level of mobility, home set-up, and family support. Pt would benefit from ambulating with RW d/t balance and strength deficits. PT recommending PT services. Pt would benefit from skilled PT while at [facility] to prevent further functional decline and maximize safety with mobility. Eval Complexity Eval Charge Codes 01608 - Moderate Complexity PHYSICIAN CERTIFICATION: I certify the specified therapy services for Ingrid Rice are required, authorized, and reviewed every 30 days.
[2023-06-26] MEDS: CEFDINIR 300MG CAPSULE 300 MG PO (12:15)
--- NOTE | 2023-06-26 13:05 | HMH.PHAINT1 ---
Pharmacy Intervention Comments: DISCHARGE MEDICATION COUNSELING WAS PROVIDED TO PATIENT ON THE FOLLOWING NEW MEDICATIONS. PATIENT VERBALIZED UNDERSTANDING AND HAD NO FURTHER QUESTIONS.
--- NOTE | 2023-06-27 15:01 | CARE MANAGER ---
Called and spoke to patient regarding recent discharge. Patient stated that she has started new medication. Patient was aware of scheduled f/u appts and had no questions/concerns at time of call.
== END 2023-06-26 12:31 | disposition home health service (06) ==
LOC: ER 13:27 → 2ND 14:20 → ER 19:12
PROVIDERS: Admitting Provider Internal Medicine Adolescent Medicine; Emergency Provider Emergency Medicine; PCP Pediatrics; Visit Provider Internal Medicine Adolescent Medicine
DX: R41.82 Altered mental status, unspecified (principal); R53.1 Weakness; N39.0 Urinary tract infection, site not specified; H40.9 Unspecified glaucoma; E03.9 Hypothyroidism, unspecified; F03.90 Unspecified dementia, unspecified severity, without behavioral disturbance, psychotic disturbance, mood disturbance, and anxiety; I10 Essential (primary) hypertension; Z79.899 Other long term (current) drug therapy; J44.9 Chronic obstructive pulmonary disease, unspecified
CPT/HCPCS: 36415; 70450; 71045; 72125; 80053; 81001; 83735; 83880; 84436; 84443; 84484; 85007; 85025; 87040; 87086; 87636; 93005; 97162; 97166; 99285; G0378; J0696

== ENCOUNTER 2024-05-18 09:55 | Emergency (ER) | payer MEDICARE, BC, SELFPAY ==
[2024-05-18] VITALS (7 sets, daily range): BP systolic 136–161; BP diastolic 60–90; PULSE 60–81; RESP 18; TEMP 36.4–36.6; O2SAT 96–100; BMI 28.5
--- NOTE | 2024-05-18 09:56 | ECG_ITS ---
APPROVED REPORT Exam: Resting ECG HR:72 bpm ECG Measurements Heart Rate 72 AXES WA 150 P 75 QRSd 84 QRS -23 QT 381 T 93 QTc 405 Conclusion SINUS RHYTHM BORDERLINE LEFT AXIS DEVIATION [QRS AXIS < -20] POSSIBLE RIGHT VENTRICULAR CONDUCTION DELAY [RSR (QR) IN V1/V2] VOLTAGE CRITERIA FOR LVH [MEETS CRITERIA IN ONE OF: R(aVL), S(V1), R(V5), R(V5/V6)+S(V1)] ST DEVIATION AND MODERATE T-WAVE ABNORMALITY, CONSIDER LATERAL ISCHEMIA [-0.1+ mV T-WAVE IN I/aVL/V5/V6] ABNORMAL ECG UNCONFIRMED REPORT Electronically signed by : Genaro Holley, 05/18/2024 15:12:45
--- NOTE | 2024-05-18 10:33 | XR_ITS ---
PROCEDURE INFORMATION: Exam: XR Chest Exam date and time: 05/18/2024 10:47 AM Age: 88 years old Clinical indication: Cough TECHNIQUE: Imaging protocol: Radiologic exam of the chest. Views: 1 view. COMPARISON: CR XR CHEST PORTABLE 06/25/2023 11:16 AM FINDINGS: Lungs: There is poor ventilation of the lungs, with perihilar vascular crowding and a diffuse increase in pulmonary parenchymal density. Streaky airspace opacities in lower lobes could be attributed to atelectasis versus developing pneumonia/aspiration in the appropriate clinical context. Pleural spaces: Unremarkable. No pleural effusion. No pneumothorax. Heart/Mediastinum: Unremarkable. No cardiomegaly. Bones/joints: Unremarkable. IMPRESSION: Streaky airspace opacities in lower lobes could be attributed to atelectasis versus developing pneumonia/aspiration in the appropriate clinical context.
[2024-05-18 10:38] LABS: Coronavirus 19, PCR Not Detected (NotDetected); Influenza A, PCR Not Detected (NotDetected); Influenza B, PCR Not Detected (NotDetected)
[2024-05-18 10:44] LABS: Albumin Level 4.5 g/dl (3.5-5.0); Chloride 100 mmol/L (98-107); Potassium 4.5 mmoL/L (3.5-5.1); Sodium 135 mmol/L (136-145)
[2024-05-18 10:47] LABS: Alanine Aminotransferase 28 U/L (12-78); Albumin/Globulin Ratio 1.4 (1.1-1.8); Alkaline Phosphatase 97 U/L (38-126); Anion Gap 17.5 mEq/L (5-15); Aspartate Amino Transferase 37 U/L (14-36); Bilirubin,Total 0.5 mg/dl (0.2-1.3); Blood Urea Nitrogen 21 mg/dl (7-17); Calcium 9.8 mg/dl (8.4-10.2); Carbon Dioxide 22 mmol/L (22.0-30.0); Creatinine Clearance Estimated 45 mL/min (50-200); Estimated Glomerular Filt Rate 59 ml/min (>60); GFR (African American) 72 ML/MIN (>60); Globulin 3.3 g/dL (1.3-3.2); Glucose 103 mg/dl (74-100); Total Protein,Serum 7.8 g/dl (6.3-8.2)
[2024-05-18 10:53] LABS: Basophils # 0.1 K/mm3 (0-0.2); Basophils % 0.4 % (0.1-2.0); Eosinophils # 0.5 K/mm3 (0.0-0.4); Eosinophils % 3.1 % (0.1-12.0); Hematocrit 45.3 % (37.0-47.0); Lymphocytes # 1.9 K/mm3 (0.7-4.5); Lymphocytes % 11.4 % (10-50); Mean Corpuscular HGB Conc 33.1 g/dL (31.8-35.4); Mean Corpuscular Hemoglobin 27.1 pg (27.0-31.2); Mean Corpuscular Volume 81.9 fl (81-99); Mean Platelet Volume 9.4 fl (7.4-10.4); Monocytes # 2.5 K/mm3 (0.1-1.0); Monocytes % 14.4 % (1.7-9.3); Neutrophils % 70.1 % (37.0-80.0); Platelet Count 421 K/mm3 (142-424); Red Blood Count 5.53 M/mm3 (4.20-5.40); Red Cell Distribution Width 13.8 % (11.5-17.5); White Blood Count 17.1 K/mm3 (4.8-10.8)
[2024-05-18 10:56] LABS: MANUAL DIFFERENTIAL MANUAL DIFFERENTIAL (MANUAL DIFF)
[2024-05-18 11:02] LABS: Troponin I < 0.01 ng/ml (0.00-0.034)
[2024-05-18 11:18] LABS: HIV Combo NEGATIVE (Negative)
[2024-05-18 11:25] LABS: Hepatitis C Ab Qual. W/ RFX NEGATIVE (Negative)
--- NOTE | 2024-05-18 11:48 | CT_ITS ---
PROCEDURE INFORMATION: Exam: CTA Neck With Contrast Exam date and time: 05/18/2024 12:14 PM Age: 88 years old Clinical indication: Vertigo; Additional info: Vertigo, n/v TECHNIQUE: Imaging protocol: Computed tomographic angiography of the neck with contrast. Exam focused on the cervical segments of the vasculature. 3D rendering (Not supervised by radiologist): MIP and/or 3D reconstructed images were created by the technologist. Radiation optimization: All CT scans at this facility use at least one of these dose optimization techniques: automated exposure control; mA and/or kV adjustment per patient size (includes targeted exams where dose is matched to clinical indication); or iterative reconstruction. Contrast material: ISOVUE 370; Contrast volume: 80 ml; Contrast route: INTRAVENOUS (IV); COMPARISON: CT CERVICAL SPINE WO CON 06/25/2023 11:17 AM FINDINGS: Right common carotid artery: No stenosis. No dissection or occlusion. Right internal carotid artery: Mild atherosclerotic changes contribute to less than 50% stenosis by NASCET criteria at the origin of right internal carotid artery. Right external carotid artery: No occlusion or stenosis of the origin. Left common carotid artery: No stenosis. No dissection or occlusion. Left internal carotid artery: Mild atherosclerotic changes contribute to less than 50% stenosis by NASCET criteria at the origin of left internal carotid artery. Left external carotid artery: No occlusion or stenosis of the origin. Right vertebral artery: No stenosis. No dissection or occlusion. Left vertebral artery: No stenosis. No dissection or occlusion. Soft tissues: Normal. No significant soft tissue swelling. Bones/joints: No acute fracture. IMPRESSION: 1. Mild atherosclerotic changes contribute to less than 50% stenosis by NASCET criteria at the origin of bilateral internal carotid arteries. 2. No occlusion or dissection along the major cervical arteries. REFERENCES: NASCET CRITERIA. The degree of stenosis in the cervical segment of the internal carotid artery is based on NASCET criteria. Normal is no stenosis. Mild is less than 50% stenosis. Moderate is 50-69% stenosis. Severe is 70% to 99% stenosis. Total occlusion is no detectable patent lumen.
--- NOTE | 2024-05-18 11:48 | CT_ITS ---
PROCEDURE INFORMATION: Exam: CTA Head With Contrast, Arteriography Exam date and time: 05/18/2024 12:14 PM Age: 88 years old Clinical indication: Vertigo; Additional info: Vertigo, n/v TECHNIQUE: Imaging protocol: Computed tomographic angiography of the head with contrast. Exam focused on the arteries. 3D rendering (Not supervised by radiologist): MIP and/or 3D reconstructed images were created by the technologist. Radiation optimization: All CT scans at this facility use at least one of these dose optimization techniques: automated exposure control; mA and/or kV adjustment per patient size (includes targeted exams where dose is matched to clinical indication); or iterative reconstruction. Contrast material: ISOVUE 370; Contrast volume: 80 ml; Contrast route: INTRAVENOUS (IV); COMPARISON: CT HEAD/BRAIN WO CON 05/18/2024 12:12 PM FINDINGS: ANTERIOR CIRCULATION: Right internal carotid artery: Intracranial segment is patent with no significant stenosis. No aneurysm. Right middle cerebral artery: No occlusion or significant stenosis. No aneurysm. Right anterior cerebral artery: No occlusion or significant stenosis. No aneurysm. Left internal carotid artery: Intracranial segment is patent with no significant stenosis. No aneurysm. Left middle cerebral artery: No occlusion or significant stenosis. No aneurysm. Left anterior cerebral artery: No occlusion or significant stenosis. No aneurysm. POSTERIOR CIRCULATION: Right vertebral artery: No occlusion or significant stenosis. No aneurysm. Left vertebral artery: No occlusion or significant stenosis. No aneurysm. Basilar artery: No occlusion or significant stenosis. No aneurysm. Right posterior cerebral artery: No occlusion or significant stenosis. No aneurysm. Left posterior cerebral artery: No occlusion or significant stenosis. No aneurysm. Brain: No definite mass, mass effect, or midline shift. Cerebral ventricles: No ventriculomegaly. Bones/joints: Unremarkable. No acute fracture. Soft tissues: Unremarkable. IMPRESSION: No large vessel stenosis or occlusion.
--- NOTE | 2024-05-18 11:48 | CT_ITS ---
PROCEDURE INFORMATION: Exam: CT Head Without Contrast Exam date and time: 05/18/2024 12:12 PM Age: 88 years old Clinical indication: Other: Vertigo, n/v TECHNIQUE: Imaging protocol: Computed tomography of the head without contrast. Radiation optimization: All CT scans at this facility use at least one of these dose optimization techniques: automated exposure control; mA and/or kV adjustment per patient size (includes targeted exams where dose is matched to clinical indication); or iterative reconstruction. COMPARISON: CT HEAD/BRAIN WO CON 06/25/2023 11:17 AM FINDINGS: Brain: There is no evidence of acute intracranial hemorrhage, extra-axial collection or locoregional mass effect. There are scattered hypodensities in the periventricular and subcortical white matter. The appearance is nonspecific, but most likely represents chronic small vessel disease in a person of this age Cerebral ventricles: The ventricles, sulci and cisterns are normal in size and configuration for patient's age. No hydrocephalus or midline structure shift Pituitary gland and sella: Sellar/parasellar structures, craniocervical junction and orbits are unremarkable Paranasal sinuses: Visualized sinuses are unremarkable. No fluid levels. Mastoid air cells: Visualized mastoid air cells are well aerated. Bones: No calvarial fracture Soft tissues: Unremarkable. Vasculature: There are calcifications in vertebral arteries and carotid siphons. IMPRESSION: 1. No acute intracranial abnormality. No calvarial fracture. 2. If focal neurological symptoms persist brain MRI can be obtained for better evaluation
--- NOTE | 2024-05-18 11:49 | [facility].EDGENADL ---
Discharge Plan Disposition Patient Disposition: Home, Self-Care Prescriptions Prescriptions: New ondansetron 4 mg tablet,disintegrating 4 mg PO Q6H PRN (Reason: nausea and vomiting) 5 Days Qty: 20 0RF No Action estradiol [Estrace] 0.01 % (0.1 mg/gram) cream 1 g vaginal QHS Qty: 42.5 8RF Rx Instructions: Patient is to use blueberry size QHS for 2 weeks and then twice weekly from then on losartan 50 mg tablet 50 mg PO HS Patient Comments: TAKE 1 TABLET BY MOUTH EVERY DAY IN THE EVENING fluoxetine 40 mg capsule 40 mg PO DAILY Patient Comments: TAKE 1 CAPSULE BY MOUTH EVERY DAY latanoprost 0.005 % drops 1 drp ophthalmic (eye) HS Patient Comments: INSTILL 1 DROP INTO BOTH EYES IN THE EVENING pilocarpine HCl 1 % drops 1 drp ophthalmic (eye) TID Patient Comments: ADMINISTER 1 DROP TO BOTH EYES 3 TIMES A DAY. donepezil 10 mg tablet 10 mg PO HS Patient Comments: TAKE 1 TABLET BY MOUTH EVERY DAY AT NIGHT levothyroxine 50 mcg tablet 50 mcg PO DAILY Patient Comments: TAKE 1 TABLET BY MOUTH EVERY DAY dorzolamide-timolol 22.3-6.8 mg/mL drops 1 drp ophthalmic (eye) BID Patient Comments: INSTILL 1 DROP INTO BOTH EYES TWICE A DAY montelukast 10 mg tablet 10 mg PO PM Patient Comments: TAKE 1 TABLET BY MOUTH EVERY DAY AT NIGHT acetaminophen 650 mg Tablet 650 mg PO Q4-6H amlodipine 5 mg Tablet 5 mg PO DAILY buspirone 7.5 mg Tablet 7.5 mg PO BID aspirin 81 mg Tablet 81 mg PO DAILY budesonide-formoterol [Symbicort] 80-4.5 mcg/actuation Hfa Aerosol Inhaler 1 inh INHALATION BID cefdinir 300 mg Capsule 300 mg PO BID 4 Days Qty: 8 0RF Referrals Follow up/Referrals: Edilberto Lim MD [Primary Care Provider] - See instructions Activity Restrictions/Add. Instructions Additional Instructions/Restrictions: No definitive cause for the vertiginous/lightheadedness symptoms that you have been having. Specifically no evidence of a stroke or any focal stenosis of the blood vessels in your brain or your head. You have a nonspecific mild elevation in white blood cell count which may be indicative of a viral infection causing the nausea and vomiting. However no definitive proof that this is a viral infection. Please take your nausea medicine and keep her self well-hydrated and return with any significant worsening of your symptoms. Otherwise no emergent medical condition identified today. Clinical Impressions Clinical Impression: Generalized weakness, Grief, Nausea & vomiting Print Language Print Language: Indian Discharge ED Provider: Pa Holley General Adult HPI General Chief complaint: Chest Pain Stated complaint: CP Time Seen by Provider: 05/18/24 11:36 Mode of Arrival: Ambulatory Source of Information: Patient and Relative Limitations: Altered Mental Status Description of Symptoms (Recalled from ER Triage Doc. by RN): pt has increased confusion,anxiety,chest pressure. x2 days. vomiting History of Present Illness HPI narrative: Patient is an 88-year-old female presenting today accompanied by her daughter with multiple complaints. Overall she states that she just does not feel well. Daughter states that since her 's several months ago she has been very anxious and depressed. The patient states she is just not had the desire to get out of bed the last few days. She does states she has had bodyaches she has had a chronic cough. Denies any specific chest pain to me. Daughter states the reason primarily that she brought her to the emergency department today is because she had vertiginous symptoms last night associate with nausea and vomiting and has had a few other episodes of nausea and vomiting. Patient denies any abdominal pain or any other focal neurologic deficits right now. States she is not vertiginous or lightheaded at the moment. Just overall does not feel well. Recently had a urinalysis which was questionably abnormal a few days ago. Related Data Home Medications ?Medication ?Instructions ?Recorded ?Confirmed acetaminophen 650 mg tablet 650 mg PO Q4-6H Pain 06/25/23 06/27/23 amlodipine 5 mg tablet 5 mg PO DAILY 06/25/23 06/27/23 aspirin 81 mg tablet 81 mg PO DAILY HEART HEALTH 06/25/23 06/27/23 budesonide-formoterol HFA 80 1 inh inhalation BID Breathing 06/25/23 06/27/23 mcg-4.5 mcg/actuation aerosol Problems inhaler (Symbicort) buspirone 7.5 mg tablet 7.5 mg PO BID 06/25/23 06/27/23 donepezil 10 mg tablet 10 mg PO HS 06/25/23 06/27/23 dorzolamide 22.3 mg-timolol 6.8 1 drp ophthalmic (eye) BID 06/25/23 06/27/23 mg/mL eye drops fluoxetine 40 mg capsule 40 mg PO DAILY Mood 06/25/23 06/27/23 latanoprost 0.005 % eye drops 1 drp ophthalmic (eye) HS 06/25/23 06/27/23 levothyroxine 50 mcg tablet 50 mcg PO DAILY Thyroid 06/25/23 06/27/23 losartan 50 mg tablet 50 mg PO HS High Blood Pressure 06/25/23 06/27/23 montelukast 10 mg tablet 10 mg PO PM Allergy Symptoms 06/25/23 06/27/23 pilocarpine HCl 1 % eye drops 1 drp ophthalmic (eye) TID 06/25/23 06/27/23 Previous Rx's ?Medication ?Instructions ?Recorded cefdinir 300 mg capsule 300 mg PO BID 4 days #8 caps 06/26/23 estradiol 0.01% (0.1 mg/gram) 1 g vaginal QHS #42.5 grams 06/27/23 vaginal cream (Estrace) ondansetron 4 mg disintegrating 4 mg PO Q6H PRN nausea and 05/18/24 tablet vomiting 5 days #20 tabs Allergies Allergy/AdvReac Type Severity Reaction Status Date / Time No Known Allergies Allergy Verified 06/27/23 13:24 [facility] Disclaimer: The information contained in this section may have been updated after the patient was seen, as this information can be updated by other users. Medical History (Updated 05/18/24 @ 13:02 by Alyson Moran RN) Glaucoma Arthritis HTN (hypertension) Asthma Dementia Hypothyroid Surgical History (Updated 06/27/23 @ 13:29 by ED Collins) History of vaginal hysterectomy Family History Other No significant family history Social History Smoking Status: Never smoker alcohol intake: never current occupational status: retired Travel in the last 8 weeks: None Have you lived/traveled outside [place] in past 30 days?: No Contact w/someone who lives/traveled outside [place] past 30 days?: No Exposure to someone with infectious disease in past 14 days?: No Do you have a fever (greater than 100.4 F or 38 C)?: No Have you tested positive for COVID-19: No Exposed to someone with COVID-19 in past 14 days?: No Do you have a sore throat?: No Do you have a cough?: No Do you have any weakness?: No Do you have any diarrhea?: No Are you experiencing any unusual bleeding?: No Do you have any muscle aches/pain?: No Do you have any abdominal pain?: No Are you experiencing loss of taste or smell?: No Other Medical History Have you received the Flu Vaccine for this season: No Have you received the Pneumonia Vaccine: Yes ROS Obtained: Yes All systems reviewed & no additional complaints except as documented Physical Exam General General appearance: alert and in no apparent distress Respiratory Respiratory exam: Present normal lung sounds bilaterally; Absent respiratory distress Cardiovascular Cardiovascular exam: Present regular rate and normal rhythm Abdominal Exam Abdominal exam: Present soft; Absent distention or tenderness Neurological Exam Neurological exam: Present alert, oriented X3, CN II-XII intact, normal gait and other (Normal finger-nose [id number] rapid alternating movements and gait); Absent motor sensory deficit Medical Decision Making Medical Records Screening: Per USPSTF and CDC recommendations, given the prevalence of disease in our region, it is our hospital?s policy to screen for HIV and viral Hepatitis for all patients aged 18 and over and those with ongoing risk factors. [place] Inquiry Pt receiving controlled substance: No Vital Signs: 05/18/24 09:55 05/18/24 10:02 05/18/24 11:00 Temperature 97.6 F Temperature Source Oral Pulse Rate 75 76 Pulse Rate [Left] 74 Respiratory Rate 18 Blood Pressure 160/84 H 159/67 H Blood Pressure [Left Arm] 160/84 H Blood Pressure Mean [Left Arm] 109 02 Sat by Pulse Oximetry 96 97 99 Oxygen Delivery Method Room Air Room Air Room Air 05/18/24 11:30 05/18/24 12:00 05/18/24 12:30 Temperature Temperature Source Pulse Rate 71 62 60 Pulse Rate [Left] Respiratory Rate Blood Pressure 156/90 H 148/67 H 161/60 H Blood Pressure [Left Arm] Blood Pressure Mean [Left Arm] 02 Sat by Pulse Oximetry 100 96 97 Oxygen Delivery Method Room Air Room Air Room Air Lab Data Lab results reviewed: Yes I reviewed the patient's lab results. Lab Results 05/18/24 09:55: SARS-CoV-2 (PCR) Not detected, Influenza A Untype (PCR) Not detected, Influenza Type B (PCR) Not detected 05/18/24 10:00: WBC 17.1 H, RBC 5.53 H, Hgb 15.0, Hct 45.3, MCV 81.9, MCH 27.1, MCHC 33.1, RDW 13.8, Plt Count 421, MPV 9.4, Neut % (Auto) 70.1, Lymph % (Auto) 11.4, Vance % (Auto) 14.4 H, Eos % (Auto) 3.1, Baso % (Auto) 0.4, Neut # (Auto) 12.0 H, Lymph # (Auto) 1.9, Vance # (Auto) 2.5 H, Eos # (Auto) 0.5 H, Baso # (Auto) 0.1, Sodium 135 L, Potassium 4.5, Chloride 100, Carbon Dioxide 22, Anion Gap 17.5 H, BUN 21 H, Creatinine 0.90, Estimated Creat Clear 45, Estimated GFR 59, Est GFR ( Amer) 72, Glucose 103 H, Calcium 9.8, Phosphorus 3.5, Magnesium 1.7, Total Bilirubin 0.5, AST 37 H, ALT 28, Alkaline Phosphatase 97, Troponin I < 0.01, NT-Pro-B Natriuret Pep 379, Total Protein 7.8, Albumin 4.5, Globulin 3.3 H, Albumin/Globulin Ratio 1.4, TSH 2.76, HCV Ab SAMREEN w/Rflx PCR Qn Negative, HIV Ag/Ab Combo Qual Negative 05/18/24 10:05: Urine Color Yellow, Urine Appearance Clear, Urine pH 7.0, Ur Specific [place] 1.025, Urine Protein Negative, Urine Glucose (UA) Negative, Urine Ketones Negative, Urine Blood Negative, Urine Nitrate Negative, Urine Bilirubin Negative, Urine Urobilinogen 0.2, Ur Leukocyte Esterase Negative, Urine RBC Occasional, Urine WBC 3-5, Ur Squamous Epith Cells 3-5, Urine Bacteria None 05/18/24 10:00 05/18/24 10:00 Orders (Tests/Meds): ED MEDICATIONS Generic Name Dose Route Start Last Admin Trade Name Freq PRN Reason Stop Dose Admin Sodium Chloride 10 ml 05/18/24 12:07 05/18/24 12:08 Sodium Chloride 0.9% 10ml Syr (Rad Only) IV 06/17/24 12:06 10 ml NEEDED PRN Administration Maintain IV Site Discontinued Medications Generic Name Dose Route Start Last Admin Trade Name Freq PRN Reason Stop Dose Admin Lactated Ringer's 1,000 mls @ 999 mls/hr 05/18/24 12:00 05/18/24 11:56 Lactated Ringer's 1000 Ml Bag IV 05/18/24 13:00 999 mls/hr .Q1H1M VIVEK Administration Iopamidol 80 ml 05/18/24 12:07 05/18/24 12:08 Iopamidol-370 (76%);100ml Bottle IV 05/18/24 12:08 80 ml ONCE ONE Administration Ondansetron HCl 4 mg 05/18/24 11:48 05/18/24 11:56 Ondansetron 4mg/2ml Vial IV 05/18/24 11:49 4 mg ONCE ONE Administration Sodium Chloride 50 ml 05/18/24 12:07 05/18/24 12:08 0.9 % Sodium Chloride 50 Ml Vial IV 05/18/24 12:08 50 ml ONCE ONE Administration ORDERS Category Date Time Status CT angio head Stat Cat Scan 05/18/24 11:[address] angio neck Stat Cat Scan 05/18/24 11:[address] head/brain wo con Stat Cat Scan 05/18/24 11:48 Completed Chest XR -- portable [XR chest portable] Stat Exams 05/18/24 10:33 Completed BNP [NT Pro Brain Natriuretic Pep.] Stat Lab 05/18/24 10:00 Completed Complete Blood Count Auto Diff Stat Lab 05/18/24 10:00 Results Comprehensive Metabolic Panel Stat Lab 05/18/24 10:00 Completed HIV Combo Stat Lab 05/18/24 10:00 Completed Hepatitis C Ab Qual. W/ RFX Stat Lab 05/18/24 10:00 Completed Magnesium Stat Lab 05/18/24 10:00 Completed Phosphorous Stat Lab 05/18/24 10:00 Completed Rapid PCR Covid and Flu A/B Stat Lab 05/18/24 09:55 Completed TSH [Thyroid Stimulating Hormone] Stat Lab 05/18/24 10:00 Completed Troponin I Q3H Lab 05/18/24 13:45 Ordered Troponin I Q3H Lab 05/18/24 16:45 Ordered Troponin I Stat Lab 05/18/24 10:00 Completed Urinalysis and Microscopic Stat Lab 05/18/24 10:05 Completed Medical Decision Narrative: 88-year-old with generalized weakness and fatigue. She also had nausea and vomiting and vertiginous symptoms but has a normal exam specifically a posterior circulation exam. Will get a CT and CT angio of her head and neck given her age to rule out any central cause of that. Patient could have metabolic abnormalities infectious etiology or this could be a progressive manifestation of her grief from her loss of her . Will reassess shortly. Reassessment 1:03 PM serial neurologic exams are normal. CT scan of the patient's head and cervical spine including CTAs of head and neck are unremarkable for my personal interpretation also review of radiology read. She has no ongoing neurologic symptoms no vertiginous symptoms I do not suspect she has any posterior fossa abnormalities that would require an MRI therefore no further imaging is necessary. She does have a mildly elevated BUN and anion gap but it is possible that she is mildly dehydrated. Urinalysis was negative. Chest x-ray was performed also that I personally interpreted which shows no evidence of acute cardiopulmonary emergency specifically no pneumonia. Patient very well-appearing on my reassessment no indication for any further inpatient hospitalization or emergent intervention she has been advised to follow-up close with her primary care doctor. Patient was discharged in stable condition a prescription of Zofran was given is possible this is a viral etiology manifesting itself with a mild leukocytosis that is nonspecific. Return precautions emphasized as well Critical Care Critical Care Time Critical Care Time: No
[2024-05-18 11:50] LABS: Microscopic, Urine URINE MICROSCOPIC (MICROSCOPIC)
[2024-05-18 11:56] LABS: Appearance,Urine CLEAR (Clear); Bilirubin,Urine Negative (Negative); Blood, Urine Negative (Negative); Color,Urine YELLOW (Yellow); Glucose,Urine (UA) Negative (Negative); Ketones,Urine Negative (Negative); Leukocyte Esterase,Urine Negative (Negative); Nitrate,Urine Negative (Negative); Protein,Urine Negative (Negative); Specific Gravity, Urine 1.025 (1.005-1.030); Urobilinogen,Urine 0.2 EU/dl (0.2)
[2024-05-18] MEDS: ONDANSETRON 4MG/2ML VIAL 4 MG IV (11:56)
[2024-05-18] MEDS: LACTATED RINGERS 1000ML 1,000 ML 999 ML IV (11:56)
--- NOTE | 2024-05-18 11:57 | PC.NURSE ---
Patient in room with family and needs nothing at this time
[2024-05-18 12:03] LABS: Phosphorous 3.5 mg/dl (2.5-4.5)
[2024-05-18 12:04] LABS: Magnesium 1.7 mg/dl (1.6-2.3)
[2024-05-18] MEDS: 0.9 % SODIUM CHLORIDE 50 ML VIAL IV (12:08)
[2024-05-18] MEDS: SODIUM CHLORIDE 0.9% 10ML SYR (RAD ONLY) 10 ML IV (12:08)
[2024-05-18] MEDS: IOPAMIDOL-370 (76%);100ML BOTTLE 80 ML IV (12:08)
[2024-05-18 12:14] LABS: NT Pro Brain Natriuretic Pep. 379 pg/mL (0-450)
[2024-05-18 12:32] LABS: RBC,Urine Occasional #/hpf (0-3)
[2024-05-18 12:35] LABS: Thyroid Stimulating Hormone 2.76 uIU/mL (0.465-4.68)
[2024-05-18 14:20] LABS: Lymphocytes % 10 % (10-50); Monocytes % 11 % (2-9); Neutrophils % 79 % (42-76); Platelet Estimate Normal; RBC Morphology Normal; Total Cells Counted 100
== END 2024-05-18 13:08 | disposition home or self-care (01) ==
PROVIDERS: Emergency Provider Student in an Organized Health Care Education/Training Program; PCP Pediatrics
DX: R11.2 Nausea with vomiting, unspecified (principal); R53.1 Weakness; F43.21 Adjustment disorder with depressed mood; R07.89 Other chest pain; R42 Dizziness and giddiness; R53.83 Other fatigue
CPT/HCPCS: 70450; 70496; 70498; 71045; 80053; 81001; 83735; 83880; 84100; 84443; 84484; 85007; 85025; 85027; 86803; 87389; 87636; 93005; 96361; 96374; 99285; J2405; J7120; Q9967

== ENCOUNTER 2024-09-25 15:00 | Outpatient (RCR) | payer MEDICARE, BC, SELFPAY | END 2024-09-25 23:59 | disposition home or self-care (01) | LOC: PT.CARL 15:00 | PROVIDERS: Visit Provider Student in an Organized Health Care Education/Training Program | DX: R29.898 Other symptoms and signs involving the musculoskeletal system (principal) | CPT/HCPCS: 97014; 97110; 97112; 97162; 97530; G0283 ==

== ENCOUNTER → 2024-10-22 14:00 | Outpatient (RCR) | payer MEDICARE, BC, SELFPAY | LOC: PT.CARL 10-07 12:56 | PROVIDERS: Visit Provider Student in an Organized Health Care Education/Training Program | DX: R29.898 Other symptoms and signs involving the musculoskeletal system (principal) | CPT/HCPCS: 97110; 97530 ==